=== PATIENT | female | born 1975 | race Caucasian/White ===

== ENCOUNTER 2018-08-23 21:36 | Emergency (ER) | payer BC, MEDICARE ==
[~2018-08-23] VITALS: Ht 154.9 cm; Wt 68.0 kg
--- NOTE | 2018-08-24 03:19 | NUR ---
GAVE PT WATER TO BS. SHE IS AWAITING MD.
[2018-08-24] MEDS ORDERED: bacitracin 15gm ointment TP ONE (03:50)
[2018-08-24] MEDS ORDERED: ondansetron 4mg rapidly disintigrating tab PO ONE (03:50)
[2018-08-24] MEDS ORDERED: HYDROcodone/acetaminophen 10/325mg tab PO ONE (03:50)
[2018-08-24] MEDS ORDERED: LIDOcaine 40mg/ml topical solution MM ONE (04:00)
[2018-08-24] MEDS ORDERED: ketorolac tromethamine 15mg/ml inj. IM ONE (04:00)
[2018-08-24] MEDS ORDERED: ONDA4TAB6 PO (04:05)
[2018-08-24] MEDS ORDERED: HYDR-4353 PO (04:05)
[2018-08-24] MEDS ORDERED: BACI28.42 TOP (04:05)
[2018-08-24] MEDS ORDERED: TETanus/Pertussis (Acell)/Diphther VAC/PF (Tdap-Adult) 0.5ml syringe IM ONE (04:10)
[2018-08-24 04:20] VITALS: BP 118/68
== END 2018-08-24 04:21 | disposition home or self-care (01) ==
LOC: ER 21:37
DX: T21.22XA Burn of second degree of abdominal wall, initial encounter (principal); G89.29 Other chronic pain; Z88.8 Allergy status to other drugs, medicaments and biological substances; X11.8XXA Contact with other hot tap-water, initial encounter; Y93.89 Activity, other specified; Y92.89 Other specified places as the place of occurrence of the external cause; Y99.9 Unspecified external cause status
CPT/HCPCS: 90471; 90715; 96372; 99283; J1885; J2001